=== PATIENT | female | born 1990 | race Two or more races ===

== ENCOUNTER 2024-08-23 13:17 | Emergency (ER) | payer OTHER ==
[~2024-08-23] VITALS: Ht 160 cm; Wt 91.6 kg
[2024-08-23] MEDS ORDERED: VITATRUE COMBO1 EACH PO (13:52)
[2024-08-23] MEDS ORDERED: SYNTHROID75 MCG PO (13:52)
[2024-08-23] MEDS ORDERED: ECOTRIN81 MG PO (13:53)
== END 2024-08-23 18:22 | disposition home or self-care (01) ==
LOC: ER 13:19
DX: O99.513 Diseases of the respiratory system complicating pregnancy, third trimester (principal); J06.9 Acute upper respiratory infection, unspecified; Z3A.39 39 weeks gestation of pregnancy; Z20.822 Contact with and (suspected) exposure to COVID-19; Z91.013 Allergy to seafood

== ENCOUNTER 2024-08-30 05:43 | Inpatient (IN) | payer OTHER ==
[~2024-08-30] VITALS: Ht 160 cm; Wt 3.6 kg
[~2024-08-30 05:43] MED LIST: ECOTRIN81 MG PO; SYNTHROID75 MCG PO; VITATRUE COMBO1 EACH PO
[2024-08-30 06:08] VITALS: BP 121/72
[2024-08-30] MEDS ORDERED: RINGERS SOLUTION,LACTATED 1,000 ML IV SCH (06:45)
[2024-08-30] MEDS ORDERED: AMPICILLIN SODIUM 2,000 MG VIAL IV ONE (06:45)
[2024-08-30 06:57] LABS: URINE BACTERIA 1090.5 uL (0.0-1933); URINE EPITHELIAL CELLS 63.6 uL (0.0-38.8); URINE RBC 6.3 uL (0.0-20.8); URINE WBC 20.2 uL (0.0-23.2)
[2024-08-30 07:02] LABS: URINE APPEARANCE Cloudy; URINE BILIRRUBIN Negative (NEGATIVE); URINE BLOOD Negative; URINE CAST 0.88 uL (0.0-1.40); URINE COLOR Yellow; URINE GLUCOSE Negative (NEGATIVE); URINE KETONE Trace (NEGATIVE); URINE LEUKOCYTE Negative; URINE NITRATE Negative; URINE PROTEIN Negative (NEGATIVE)
[2024-08-30 07:04] LABS: HEMATOCRIT 35.7 % (36.0-45.00); MEAN CELL VOLUME 81.5 fL (80.00-100.00); MEAN CORPUSCULAR HEMOGLOBIN 27.3 pg (27.00-32.0); MEAN CORPUSCULAR HGB CONC 33.5 g/dl (32.0-36.0); PLATELET COUNT 315 K/uL (150-450); RED BLOOD COUNT 4.38 M/uL (4.00-6.00); RED CELL DISTRIBUTION WIDTH 17.1 % (11.5-14.5)
[2024-08-30 07:26] LABS: INR 0.96; PARTIAL THROMBOPLASTIN TIME 26.8 SECONDS (22.0-34.0); PROTHROMBIN TIME 10.5 SECONDS (9.0-11.5)
[2024-08-30] MEDS ORDERED: AMPICILLIN SODIUM 2,000 MG VIAL ONE (07:26)
[2024-08-30 07:40] VITALS: BP 123/80
[2024-08-30 07:47] LABS: ALBUMIN 2.4 gm/dL (3.4-5.0); BILIRUBIN TOTAL 0.47 mg/dL (0.3-1.2); CALCIUM 8.8 mg/dL (8.5-10.1); CREATININE SERUM 0.54 mg/dL (0.55-1.02); GFR 130.02; GLOBULINA 3.9 G/DL (2.4-3.5); POTASSIUM 4.09 mEq/L (3.5-5.1); TOTAL PROTEIN 6.3 gm/dL (6.4-8.2)
[2024-08-30] MEDS ORDERED: MISOPROSTOL 25 MCG/4 ML GEL.W.APPL ONE (08:38)
[2024-08-30] MEDS ORDERED: MISOPROSTOL 25 MCG/4 ML GEL.W.APPL VAG ONE (08:45)
[2024-08-30] MEDS ORDERED: AMPICILLIN SODIUM 1,000 MG VIAL ONE ×2 (10:58→20:12)
[2024-08-30 11:08] VITALS: BP 127/65
[2024-08-30] MEDS ORDERED: AMPICILLIN SODIUM 1,000 MG VIAL IV SCH (12:00)
[2024-08-30 15:30] VITALS: BP 116/64
[2024-08-30] MEDS ORDERED: OXYTOCIN 10 UNITS/ML VIAL ONE (16:40)
[2024-08-30] MEDS ORDERED: ERYTHROMYCIN BASE OPHT 1GM EACH TUBE OP ONE (16:40)
[2024-08-30] MEDS ORDERED: CEFAZOLIN SODIUM 1,000 MG VIAL ONE (17:29)
[2024-08-30] MEDS ORDERED: MORPHINE SULFATE 4 MG/ML VIAL IV ONE (19:10)
[2024-08-30] MEDS ORDERED: MEPERIDINE HCL/PF 50 MG/ML VIAL IV SCH (20:00)
[2024-08-30] MEDS ORDERED: KETOROLAC TROMETHAMINE 60 MG VIAL IM NR (20:00)
[2024-08-30] MEDS ORDERED: PROMETHAZINE HCL 25 MG/ML AMPUL IV SCH (20:00)
[2024-08-30 21:17] VITALS: BP 105/68
[2024-08-31 00:53] VITALS: BP 120/76
[2024-08-31 02:24] LABS: HEMATOCRIT 35.8 % (36.0-45.00); HEMOGLOBIN 11.4 g/dL (12.0-15.00); MEAN CELL VOLUME 83.9 fL (80.00-100.00); MEAN CORPUSCULAR HEMOGLOBIN 26.7 pg (27.00-32.0); MEAN CORPUSCULAR HGB CONC 31.9 g/dl (32.0-36.0); PLATELET COUNT 291 K/uL (150-450); RED BLOOD COUNT 4.27 M/uL (4.00-6.00); RED CELL DISTRIBUTION WIDTH 17.2 % (11.5-14.5)
[2024-08-31] MEDS ORDERED: OxyCODONE HCL/APAP UD (PERCOCET) PO SCH (08:00)
[2024-08-31 08:28] VITALS: BP 111/68
[2024-08-31] MEDS ORDERED: SIMETHICONE 125 MG CAPSULE PO SCH (09:00)
[2024-08-31] MEDS ORDERED: DOCUSATE CALCIUM 240 MG CAPSULE PO SCH (09:00)
[2024-08-31 15:53] VITALS: BP 122/79
[2024-08-31 20:11] VITALS: BP 106/69
[2024-09-01] VITALS: BP 99/64
[2024-09-01 07:53] VITALS: BP 104/65
[2024-09-01 13:21] VITALS: BP 106/68
[2024-09-01 16:14] VITALS: BP 113/74
[2024-09-01] MEDS ORDERED: OxyCODONE HCL/APAP UD (PERCOCET) PO PRN (22:45)
[2024-09-02] VITALS: BP 106/66
[2024-09-02] MEDS ORDERED: COLACE100 MG PO (08:09)
[2024-09-02] MEDS ORDERED: SIMETHICONE125 M1 PO (08:09)
[2024-09-02] MEDS ORDERED: IBU800 MG PO (08:09)
[2024-09-02 08:25] VITALS: BP 122/84
== END 2024-09-02 11:02 | disposition home or self-care (01) | DRG 788 ==
LOC: LDR 05:43 → OB/GYN 05:43 → O/R 05:43 → OB/GYN 19:30
PROVIDERS: ADMIT Specialist; ATTEND Specialist
PROC: 3E033VJ Introduction of Other Hormone into Peripheral Vein, Percutaneous Approach (ICD-10-PCS; 2024-08-30)
PROC: 3E0P7VZ Introduction of Hormone into Female Reproductive, Via Natural or Artificial Opening (ICD-10-PCS; 2024-08-30)
PROC: 4A1HXCZ Monitoring of Products of Conception, Cardiac Rate, External Approach (ICD-10-PCS; 2024-08-30)
PROC: 10D00Z1 Extraction of Products of Conception, Low, Open Approach (ICD-10-PCS; principal; 2024-08-30 16:30)
DX: O24.420 Gestational diabetes mellitus in childbirth, diet controlled (principal); Z3A.40 40 weeks gestation of pregnancy; Z37.0 Single live birth